=== PATIENT | female | born 1980 | race Caucasian/White ===

== ENCOUNTER 2018-09-26 09:45 | Outpatient (RCR) | payer OTHER, SELFPAY ==
--- NOTE | 2018-09-19 09:45 | PT.OIE ---
Current Diagnoses Unspecified urinary incontinence (09/19/18) Provider Visit Care Team Role Provider Type Priya Patricio MD Attending Provider Non-Staff Primary Care Provider Specialty: RETORT FIREMAN Address: [id number], [place], [address] Fax: Email: Physical Therapy Initial Evaluation PT-OP-A Visit Information Start: 09/19/18 08:47 Freq: Status: Active Protocol: Document 09/19/18 09:45 AMB (Rec: 09/20/18 13:01 AMB [email or web address]) Out-Patient Physical Therapy Visit Information Visit Information Visit Type Initial Evaluation Visit Start Time 09:45 Visit Stop Time 10:30 Total Visit Minutes 45 Visit Number 1 Evaluation Information Evaluation Date 09/20/18 PT-OP-B Current Condition Start: 09/19/18 08:47 Freq: Status: Active Protocol: Document 09/19/18 09:45 AMB (Rec: 09/20/18 13:01 AMB [email or web address]) Current Condition History of Current Condition Onset Date 8 months Current Complaints stress incontinence and pelvic floor spasm History of Current Condition The patient has a history of endometriosis. Surgery in 2012 remove endometrium and then put on chemical menopause . About 8 months ago put on noroplant and symptoms started increasing. Now cough, sneeze, blowing nose all make her leak urine. No fecal leaks, but does have chronic diarrhea due to gall bladder issues. She also notes pelvic floor spasms. She reports they are worse around the time of menstruation, but they are frequent now, multiple times per day for 2-15 minutes. She does have pain after intercourse the next day seems to set off spasms. 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. Pt does not have any pregnancies to report. Future Testing and Treatments Planned Full hysterectomy planned for October 07. Treatment Goals Patient/Caregiver Goals Reduce spasms, regain continence Personal Factors Other Personal Factors That May Effect thyroid dysfunction Therapy/Recovery PT-OP-C Subjective Start: 09/19/18 08:47 Freq: Status: Active Protocol: Document 09/19/18 09:45 AMB (Rec: 09/20/18 13:01 AMB [email or web address]) Patient Questionnaires Pelvic Pain and Urgency/Frequency Patient Symptom Scale Pelvic Pain Score 23 PT-OP-I Pelvic Floor Start: 09/19/18 08:47 Freq: Status: Active Protocol: Document 09/19/18 09:45 AMB (Rec: 09/20/18 13:16 AMB [email or web address]) Pelvic Floor Assessment Urine Pelvic Floor Surgery Yes: endometriosis surgery 2013 Urinary Symptoms Pain Leakage Size Small Leakage Cause Cough Sneeze Leaks Per Day many Pads Used In 24 Hours 2 Urine Pad Type Panty Liner Bowel Other Bowel Symptoms diarrhea Pelvic Clock Pelvic Clock 12-3 Guarding Tenderness Pelvic Clock 3-6 Guarding Hypertonic Tenderness Tightness Pelvic Clock 6-9 Guarding Tenderness Tightness Pelvic Clock 9-12 Guarding Hypertonic Tenderness Contraction Ability Voluntary Contraction Weak Voluntary Relaxation Weak Manual Muscle Testing Left 1 Manual Muscle Testing Right 1 Manual Muscle Testing Anterior 0 Manual Muscle Testing Posterior 2 Muscle Endurance (Seconds) 3 Number of Quick Contractions In 10 3 Seconds Comments Pelvic Floor Comments Palpable muscles spasm at L levator ani PT-OP-Q Treatments Start: 09/19/18 08:47 Freq: Status: Active Protocol: Document 09/19/18 09:45 AMB (Rec: 09/20/18 13:16 AMB [email or web address]) Therapeutic Exercises Supine Exercises 2 Supine Exercise Name deep squat 1 Supine Exercise Name happy baby stretch PT-OP-T Assessment and Plan Start: 09/19/18 08:47 Freq: Status: Active Protocol: Document 09/19/18 09:45 AMB (Rec: 09/20/18 13:39 AMB [email or web address]) Physical Therapy Assessment Rehab Potential Rehabilitation Potential Good Evaluation Complexity Number of Personal Factors/Comorbidities 1-2 Number of Body Systems Impaired 3 Clinical Presentation at Evaluation Evolving Impairments Impairments Functional Activities Pain Strength Goals Two Impairment stress incontinence Short Term Goal (STG) The patient will be independent with a pelvic floor strengthening program. STG Duration 6 weeks Assisted Goal (LTG) The patient will cough without leaking urine. One Impairment pain Short Term Goal (STG) The patient will perform a pelvic floor contraction without muscle spasm. STG Duration 6 weeks Supply And Distribution Manager Goal (LTG) The patient will complete intercourse without pelvic floor spasm. LTG Duration 12 weeks Assessment Summary Assessment Stefani has palpable muscles spasms throughout her pelvic floor and reports stress urinary incontinence symptoms. She had significantly weak pelvic floor, but we will need to be careful with strengthening considering her pain and weakness. She also has surgery scheduled in 3 weeks and is not yet sure if it will be laparoscopic or open hysterectomy as it depends on the size of her fibroid. We will plan on resuming PT after her surgery, but the wait time to resume will depend on her surgeon. Physical Therapy Plan Frequency and Duration Frequency of Treatment 1x/Week Duration of Treatment 12 weeks Plan of Care Start Date 09/19/18 Plan of Care End Date 12/12/18 Therapeutic Interventions Therapeutic Interventions Home Exercise Program Manual Therapy Neuromuscular Re-education Self-Care/Home Management Therapeutic Activities Therapeutic Exercises Modalities Biofeedback Cold Pack/Ice Massage Electric Stimulation Hot Packs Next Visit Focus/Plan Next Note Type Treatment Note Next Visit Plan Progress pelvic floor stretching
--- NOTE | 2018-09-20 13:40 | PT.OPPOC ---
Current Diagnoses Unspecified urinary incontinence (09/19/18) Provider Visit Care Team Role Provider Type Priya Patricio MD Attending Provider Non-Staff Primary Care Provider Specialty: CLIENT ACCOUNT MANAGER Address: [facility] [id number], [place], [address] Fax: Email: Plan Of Care PT-OP-T Assessment and Plan Start: 09/19/18 08:47 Freq: Status: Active Protocol: Document 09/19/18 09:45 AMB (Rec: 09/20/18 13:39 AMB [email or web address]) Physical Therapy Assessment Rehab Potential Rehabilitation Potential Good Evaluation Complexity Number of Personal Factors/Comorbidities 1-2 Number of Body Systems Impaired 3 Clinical Presentation at Evaluation Evolving Impairments Impairments Functional Activities Pain Strength Goals Two Impairment stress incontinence Short Term Goal (STG) The patient will be independent with a pelvic floor strengthening program. STG Duration 6 weeks Petroleum Inspector Supervisor Goal (LTG) The patient will cough without leaking urine. One Impairment pain Short Term Goal (STG) The patient will perform a pelvic floor contraction without muscle spasm. STG Duration 6 weeks Petroleum Inspector Supervisor Goal (LTG) The patient will complete intercourse without pelvic floor spasm. LTG Duration 12 weeks Assessment Summary Assessment Stefani has palpable muscles spasms throughout her pelvic floor and reports stress urinary incontinence symptoms. She had significantly weak pelvic floor, but we will need to be careful with strengthening considering her pain and weakness. She also has surgery scheduled in 3 weeks and is not yet sure if it will be laparoscopic or open hysterectomy as it depends on the size of her fibroid. We will plan on resuming PT after her surgery, but the wait time to resume will depend on her surgeon. Physical Therapy Plan Frequency and Duration Frequency of Treatment 1x/Week Duration of Treatment 12 weeks Plan of Care Start Date 09/19/18 Plan of Care End Date 12/12/18 Therapeutic Interventions Therapeutic Interventions Home Exercise Program Manual Therapy Neuromuscular Re-education Self-Care/Home Management Therapeutic Activities Therapeutic Exercises Modalities Biofeedback Cold Pack/Ice Massage Electric Stimulation Hot Packs Next Visit Focus/Plan Next Note Type Treatment Note Next Visit Plan Progress pelvic floor stretching Plan of Care Dates Plan of Care Start Date 09/19/18 Plan of Care End Date 12/12/18 Please Sign and Return: I have reviewed this Plan of Care and certify that the skilled therapy services above are required to meet the patient?s needs. Physician Signature Date Printed Name and Credentials Clinical Instructor Signature Printed Name and Credentials
--- NOTE | 2018-09-26 16:00 | PT.OTN ---
Current Diagnoses Unspecified urinary incontinence (09/26/18) Physical Therapy Treatment Note PT-OP-A Visit Information Start: 09/19/18 08:47 Freq: Status: Active Protocol: Document 09/26/18 09:45 AMB (Rec: 09/26/18 09:57 AMB [id number]) Out-Patient Physical Therapy Visit Information Visit Information Visit Type Treatment Note Visit Start Time 09:45 Visit Stop Time 10:30 Total Visit Minutes 45 Visit Number 2 PT-OP-B Current Condition Start: 09/19/18 08:47 Freq: Status: Active Protocol: Document 09/19/18 09:45 AMB (Rec: 09/20/18 13:01 AMB [email or web address]) Current Condition History of Current Condition Onset Date 8 months Current Complaints stress incontinence and pelvic floor spasm History of Current Condition The patient has a history of endometriosis. Surgery in 2012 remove endometrium and then put on chemical menopause . About 8 months ago put on noroplant and symptoms started increasing. Now cough, sneeze, blowing nose all make her leak urine. No fecal leaks, but does have chronic diarrhea due to gall bladder issues. She also notes pelvic floor spasms. She reports they are worse around the time of menstruation, but they are frequent now, multiple times per day for 2-15 minutes. She does have pain after intercourse the next day seems to set off spasms. 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 Future Testing and Treatments Planned Full hysterectomy planned for October 07. Treatment Goals Patient/Caregiver Goals Reduce spasms, regain continence Personal Factors Other Personal Factors That May Effect thyroid dysfunction Therapy/Recovery PT-OP-C Subjective Start: 09/19/18 08:47 Freq: Status: Active Protocol: Document 09/26/18 09:45 AMB (Rec: 09/26/18 09:57 AMB [id number]) OP-PT Subjective Patient Comments Patient Comments Pt has been noticing less massive spasms and more tiny fasciculations. PT-OP-I Pelvic Floor Start: 09/19/18 08:47 Freq: Status: Active Protocol: Document 09/19/18 09:45 AMB (Rec: 09/20/18 13:16 AMB [email or web address]) Pelvic Floor Assessment Urine Pelvic Floor Surgery Yes: endometriosis surgery 2013 Urinary Symptoms Pain Leakage Size Small Leakage Cause Cough Sneeze Leaks Per Day many Pads Used In 24 Hours 2 Urine Pad Type Panty Liner Bowel Other Bowel Symptoms diarrhea Pelvic Clock Pelvic Clock 12-3 Guarding Tenderness Pelvic Clock 3-6 Guarding Hypertonic Tenderness Tightness Pelvic Clock 6-9 Guarding Tenderness Tightness Pelvic Clock 9-12 Guarding Hypertonic Tenderness Contraction Ability Voluntary Contraction Weak Voluntary Relaxation Weak Manual Muscle Testing Left 1 Manual Muscle Testing Right 1 Manual Muscle Testing Anterior 0 Manual Muscle Testing Posterior 2 Muscle Endurance (Seconds) 3 Number of Quick Contractions In 10 3 Seconds Comments Pelvic Floor Comments Palpable muscles spasm at L levator ani PT-OP-Q Treatments Start: 09/19/18 08:47 Freq: Status: Active Protocol: Document 09/26/18 09:45 AMB (Rec: 09/26/18 16:00 AMB [email or web address]) Therapeutic Exercises Supine Exercises 3 Supine Exercise Name hip flexor stretch 1 Supine Exercise Name happy baby stretch Other Exercises 2 Other Exercise Name quadruped sidebending 1 Other Exercise Name sajan pose Manual Therapy Treatment Soft Tissue Mobilization 1 Body Location levator ani, obterator internus Comments L>R PT-OP-T Assessment and Plan Start: 09/19/18 08:47 Freq: Status: Active Protocol: Document 09/26/18 09:45 AMB (Rec: 09/26/18 16:00 AMB [email or web address]) Physical Therapy Assessment Assessment Summary Assessment Stefani had less spasms today ,but still had more on her L. Good tolerance to ther ex. Physical Therapy Plan Next Visit Focus/Plan Next Note Type Treatment Note Next Visit Plan Progress pelvic stretching with manual therapy and stretching program.
--- NOTE | 2019-01-01 15:33 | PT.OPDS ---
Current Diagnoses Unspecified urinary incontinence (09/26/18) Provider Visit Care Team Role Provider Type Priya Patricio MD Attending Provider Non-Staff Primary Care Provider Specialty: REFURBISH TECHNICIAN Address: [address] [address], [place], [address] Email: Visit Number Visit Number 2 Discharge Summary PT-OP-B Current Condition Start: 09/19/18 08:47 Freq: Status: Active Protocol: Document 09/19/18 09:45 AMB (Rec: 09/20/18 13:01 AMB [email or web address]) Current Condition History of Current Condition Onset Date 8 months Current Complaints stress incontinence and pelvic floor spasm History of Current Condition The patient has a history of endometriosis. Surgery in 2013 remove endometrium and then put on chemical menopause . About 8 months ago put on noroplant and symptoms started increasing. Now cough, sneeze, blowing nose all make her leak urine. No fecal leaks, but does have chronic diarrhea due to gall bladder issues. She also notes pelvic floor spasms. She reports they are worse around the time of menstruation, but they are frequent now, multiple times per day for 2-15 minutes. She does have pain after intercourse the next day seems to set off spasms. 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 Future Testing and Treatments Planned Full hysterectomy planned for October 07. Treatment Goals Patient/Caregiver Goals Reduce spasms, regain continence Personal Factors Other Personal Factors That May Effect thyroid dysfunction Therapy/Recovery PT-OP-C Subjective Start: 09/19/18 08:47 Freq: Status: Active Protocol: Document 09/26/18 09:45 AMB (Rec: 09/26/18 09:57 AMB [id number]) OP-PT Subjective Patient Comments Patient Comments Pt has been noticing less massive spasms and more tiny fasciculations. PT-OP-I Pelvic Floor Start: 09/19/18 08:47 Freq: Status: Active Protocol: Document 09/19/18 09:45 AMB (Rec: 09/20/18 13:16 AMB [email or web address]) Pelvic Floor Assessment Urine Pelvic Floor Surgery Yes: endometriosis surgery 2013 Urinary Symptoms Pain Leakage Size Small Leakage Cause Cough Sneeze Leaks Per Day many Pads Used In 24 Hours 2 Urine Pad Type Panty Liner Bowel Other Bowel Symptoms diarrhea Pelvic Clock Pelvic Clock 12-3 Guarding Tenderness Pelvic Clock 3-6 Guarding Hypertonic Tenderness Tightness Pelvic Clock 6-9 Guarding Tenderness Tightness Pelvic Clock 9-12 Guarding Hypertonic Tenderness Contraction Ability Voluntary Contraction Weak Voluntary Relaxation Weak Manual Muscle Testing Left 1 Manual Muscle Testing Right 1 Manual Muscle Testing Anterior 0 Manual Muscle Testing Posterior 2 Muscle Endurance (Seconds) 3 Number of Quick Contractions In 10 3 Seconds Comments Pelvic Floor Comments Palpable muscles spasm at L levator ani PT-OP-T Assessment and Plan Start: 09/19/18 08:47 Freq: Status: Active Protocol: Document 01/01/19 15:31 AMB (Rec: 01/01/19 15:33 AMB [email or web address]) Physical Therapy Assessment Assessment Summary Assessment Stefani had a hysterectomy with a complicated recovery. She was going to work on getting a new referral when her doctor wanted her to come back. Since it has been over three months since she was last seen, she is now discharged and will need a new referral to return.
== END 2019-01-06 08:33 | disposition home or self-care (01) ==
LOC: PHYS 09:45
PROVIDERS: PCP Obstetrics & Gynecology; Visit Provider Obstetrics & Gynecology
DX: R32 Unspecified urinary incontinence (principal)
CPT/HCPCS: 97110; 97140; 97162